=== PATIENT | male | born 1970 | race Caucasian/White ===

== ENCOUNTER 2020-12-19 10:00 | Outpatient (CLI) | payer OTHER, SELFPAY ==
[~2020-12-19] VITALS: Ht 180.3 cm; Wt 99.8 kg
== END 2020-12-19 23:59 | disposition home or self-care (01) ==
LOC: MLB 10:00 → EDSTATUS 02-14 13:20
PROVIDERS: ATTEND Internal Medicine Gastroenterology
DX: Z01.812 Encounter for preprocedural laboratory examination (principal); Z20.822 Contact with and (suspected) exposure to COVID-19
CPT/HCPCS: U0003